=== PATIENT | male | born 1965 | race American Indian/Alaskan Native ===

== ENCOUNTER 2019-03-25 14:03 | Emergency (ER) | payer SELFPAY ==
[2019-03-25 14:52] VITALS: BP 140/92
--- NOTE | 2019-03-25 14:58 | Emergency Department Report ---
Chief Complaint: Urogenital-Male Stated Complaint: WHITE DISCHARGE/FEVER Time Seen by Provider: 03/25/19 14:54 - HPI History of Present Illness: 53 y o male presents with cc of penile d/c with no cc of dysuria denies f/n/v/d/ he states that he had recent unprotected sex and thinks he may have an std he denies testicular swelling or pain - ROS Review of Systems: NOTED IN hpi - Exam Vital Signs: Vital Signs 03/25/19 14:50 Temperature 98.8 F Pulse Rate 85 Respiratory 20 Rate Blood Pressure 140/92 O2 Sat by Pulse 99 Oximetry Physical Exam: GEN: AAO x 3, no acute distress MSE screening note: Focused history and physical exam performed. Due to findings the following was ordered: ED Medical Decision Making - Medical Decision Making Discussed with pt to f/u with pcp VSS pt in no acute distress She understands to f/u with pcp ED Disposition for MSE Clinical Impression: STD (sexually transmitted disease) Disposition: MED SCREENING EXAM-LEFT Is pt being admited?: No Does the pt Need Aspirin: No Condition: Stable Instructions: Sexually Transmitted Diseases (ED) Additional Instructions: follow up with pcp follow up with heALTH DEPT FOR STD SCREENING Referrals: [facility] [Outside] - 3-5 Days [facility] [Outside] - 3-5 Days Forms: Work/School Release Form(ED) Time of Disposition: 14:58
== END 2019-03-25 15:17 | disposition left against medical advice (07) ==
LOC: ED 14:03
DX: A64 Unspecified sexually transmitted disease (principal)
CPT/HCPCS: 99281